=== PATIENT | male | born 1970 | race Caucasian/White ===

== ENCOUNTER 2018-11-17 08:38 | Emergency (ER) | payer BC ==
[2018-11-17] MEDS ORDERED: Aspirin 81 MG Tab.Chew PO ONE (08:59)
[2018-11-17] MEDS ORDERED: Clopidogrel 75 MG Tab PO ONE (10:11)
[2018-11-17] MEDS ORDERED: Heparin Sodium/D5W 25,000 UNITS/500 ML BAG IV SCH (10:15)
[2018-11-17] MEDS ORDERED: Heparin Sodium 5,000 Units/ML Vial IVPUSH ONE (10:17)
--- NOTE | 2018-11-17 10:17 | CR ---
DATE OF SERVICE: 11/17/2018 CLINICAL DATA: Chest pain. AP PORTABLE CHEST: The heart size is normal. The patient has taken a poor inspiration. The lungs appear clear. No pneumothorax. No pleural effusions. No evidence of acute intrathoracic disease. [id number] MTDD
[2018-11-17] MEDS ORDERED: Labetalol 100 MG/20 ML MDV IVPUSH ONE ×2 (11:50→12:30)
[2018-11-17] MEDS ORDERED: LORazepam 1 MG Tab PO ONE (13:05)
[2018-11-17] MEDS ORDERED: LORazepam 1 MG Tab ONE (13:14)
--- NOTE | 2018-11-18 08:22 | ER ---
DATE OF SERVICE: 11/17/2018 REASON FOR EMERGENCY ROOM VISIT: Chest pain. HISTORY: This previously healthy 48-year-old man with a 1-year history of hypertension, comes in after experiencing an episode of substernal pressure followed by pain in both elbows this morning after breakfast. The pain lasted 20 minutes and was associated with diaphoresis, but no nausea or vomiting. The pain seemed to be relieved after he took some Tums and Rolaids, but he came to the emergency room to have this evaluated. He does relate a similar episode last week after eating ice cream, that lasted a few minutes. It was manifested by chest pressure in the substernal area, that was relieved with Rolaids. He has no prior history of cardiac disease nor does he have a history of exertional chest pain. He does have a history of hypertension for the past year for which he takes metoprolol. He is nondiabetic and is a nonsmoker. PAST MEDICAL HISTORY: 1. Hypertension x1 year. 2. Back surgery x2 in 2015. 3. Right rotator cuff repair, 2014. MEDICATIONS: Include metoprolol (see electronic medical record). SOCIAL HISTORY: He is and lives alone. He is a nonsmoker. He drinks 3 or 4 beers per day. He works at [email or web address]. REVIEW OF SYSTEMS: All pertinent positives and negatives as listed in the HPI. FAMILY HISTORY: His father had coronary artery disease and stents were placed. His mother has hypertension. He has a daughter who was alive and well. He has 3 siblings who are alive and well as far as he knows. PHYSICAL EXAMINATION: GENERAL: Reveals a calm, pleasant man, in no acute distress. VITAL SIGNS: His blood pressure 136/85, pulse 77, O2 sats 99%, respiratory rate 16. HEENT: Head is normocephalic. Pupils equally round and reactive to light. No conjunctivitis or scleral icterus is noted. Oropharynx is normal. NECK: Supple. No JVD. No bruits. CHEST: Clear to auscultation with good air exchange bilaterally. CARDIAC: Regular rate without murmur or rub. ABDOMEN: Soft and nontender. No pulsatile masses are noted. EXTREMITIES: Normal pulses. No edema. SKIN: No rashes. MUSCULOSKELETAL: No deformities. BACK: Nontender. No percussion tenderness over the spine. LABORATORY DATA: His CBC is normal with a hemoglobin of 15.5 and white count of 5800. His CMP is essentially normal with normal electrolytes and renal function. His troponin I was highly elevated at 0.327. PT and PTT are pending at the time of this dictation. EKG shows some nonspecific ST-segment changes. I was questioning whether or not he had significant ST-segment elevation in his precordial leads, but I conferred with Dr. Hermelindo Banks, self defense instructor from [place], who looked at the EKG with me and does not feel that there is any sign of a STEMI. IMPRESSION: Rule out myocardial infarction/coronary ischemia. PLAN: After discussing with Dr. Banks, self defense instructor in [place] and Dr. Prater, the hospitalist at [place], the best course of action would be to transfer him by ground using ALS support. He will be given a bolus of 5000 units of heparin followed by a heparin drip at 1000 units an hour. He was also given 4 baby aspirin and Plavix 600 mg p.o. x1. I discussed with the patient the recommendations that are outlined above, and he was informed that in all likelihood he will have undergo a heart catheterization today, possibly to include stenting if indicated, etc. He understands the risks of transfer, including motor vehicle accidents, etc. This was discussed with him. He agrees to this plan. All questions were answered. JW /[id number]
== END 2018-11-17 14:26 ==
LOC: LB.ED 08:38
DX: R07.89 Other chest pain (principal); I10 Essential (primary) hypertension
CPT/HCPCS: 36415; 71045; 80053; 84484; 85025; 85610; 85730; 93005; 96365; 96375; 96376; 99285; A0425; A0429; A9270; J1644; J3490